=== PATIENT | male | born 1985 | race Caucasian/White ===

== ENCOUNTER 2017-01-24 18:08 | Emergency (ER) | payer MEDICAID, OTHER, SELFPAY ==
[2017-01-24] MEDS ORDERED: Ibuprofen 600 MG Tab PO ONE (18:40)
--- NOTE | 2017-01-24 18:48 | EDM.PDOC ---
ED HPI GENERAL MEDICAL PROBLEM - General Chief Complaint: Upper Extremity Injury/Pain Stated Complaint: INJ TO RT HAND Time Seen by Provider: 01/24/17 18:14 Source of Information: Reports: Patient, Family History Limitations: Reports: No Limitations - History of Present Illness INITIAL COMMENTS - FREE TEXT/NARRATIVE: 31 y.o.w.m came to the ed with his SO after he fell onto hi r hand today. Pt does not remember the mechanism of injury but noticed swelling of his r lat hand. He has full functions of his r hand. 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 Pt denied any other acute medical issues at this time. Onset: Today Onset Date: 01/24/17 Onset Time: 14:00 Duration: Hour(s):, Getting Worse Location: Reports: Upper Extremity, Right Quality: Reports: Dull, Pressure, Throbbing Severity: Moderate Improves with: Reports: Cold Therapy, Immobilization, Medication Worsens with: Reports: Movement Context: Reports: Trauma Associated Symptoms: Reports: No Other Symptoms Right Hand Pain Score (Numeric/FACES): 3 - Related Data Allergies Allergy/AdvReac Type Severity Reaction Status Date / Time No Known Allergies Allergy Verified 01/24/17 18:12 Home Meds: Home Meds Ranitidine [Zantac] 1 tab PO DAILY 01/24/17 [History] Social & Family History - Tobacco Use Smoking Status *Q: Current Every Day Smoker Years of Tobacco use: 14 Packs/Tins Daily: 1 - Caffeine Use Caffeine Use: Reports: Coffee - Alcohol Use Days Per Week of Alcohol Use: 7 Number of Drinks Per Day: 2 Total Drinks Per Week: 14 - Recreational Drug Use Recreational Drug Use: No Review of Systems - Review of Systems Review Of Systems: See Below Constitutional: Reports: No Symptoms Eyes: Reports: No Symptoms Ears: Reports: No Symptoms Nose: Reports: No Symptoms Mouth/Throat: Reports: No Symptoms Respiratory: Reports: No Symptoms Cardiovascular: Reports: No Symptoms GI/Abdominal: Reports: No Symptoms Genitourinary: Reports: No Symptoms Musculoskeletal: Reports: Hand Pain Skin: Reports: No Symptoms Neurological: Reports: No Symptoms Psychiatric: Reports: No Symptoms ED EXAM, GENERAL - Physical Exam Exam: See Below Exam Limited By: No Limitations General Appearance: Alert, WD/WN, Mild Distress, Thin Eye Exam: Bilateral Eye: Normal Inspection Ears: Normal External Exam Ear Exam: Bilateral Ear: Auricle Normal Nose: Normal Inspection, Normal Mucosa Throat/Mouth: Other (poor dentition) Head: Atraumatic, Normocephalic Neck: Normal Inspection, Supple, Non-Tender, Full Range of Motion Respiratory/Chest: No Respiratory Distress, Lungs Clear, Normal Breath Sounds Cardiovascular: Normal Peripheral Pulses, Regular Rate, Rhythm, No Edema, No Gallop Peripheral Pulses: 1+: Femoral (L), Femoral (R) GI/Abdominal: Normal Bowel Sounds, Soft, Non-Tender, No Organomegaly, No Distention, No Abnormal Bruit, No Mass, Pelvis Stable (Male) Exam: Deferred Rectal (Males) Exam: Deferred Back Exam: Normal Inspection, Full Range of Motion Extremities: Other (right lateral hand is swollen and tender, no open wound) Psychiatric: Normal Affect, Normal Mood Skin Exam: Warm, Dry, Intact, Normal Color, No Rash Lymphatic: No Adenopathy ED TRAUMA EXTREMITY PROCEDURES - Splinting Right Upper Extremity Splint Site: r laterla hand/forearm Pre-Procedure NV Status: Normal Post-Procedure NV Status: Normal Splint Material: Plaster Splint Design: Gutter Applied & Form Fitted By: Provider Provider Post-Splint Application NV Check: NV Status Normal Complications: No Course - Vital Signs Text/Narrative:: 31 y.o.w.m came to the ed with his SO after he fell onto hi r hand today. Pt does not remember the mechanism of injury but noticed swelling of his r lat hand. He has full functions of his r hand. 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 Pt denied any other acute medical issues at this time. PE: thin 31 y.o.w.m in NAD. swelling and tnderness r lat hand. Imaging: R hand: 30 degree angulated mid shaft/neck fx of r 5th metacarpal bone Impression: R hand: 30 degree angulated mid shaft/neck fx of r 5th metacarpal bone Tx: Ice, Motrin, splint applied Reexam: Improved, < 2sec Cap refill Consultation: Dr. Pitt. Will see pt in his clinic. Plan: D/C with instruction Last Recorded V/S: Last Vital Signs Temp 36.8 C 01/24/17 18:14 Pulse 70 01/24/17 19:25 Resp 18 01/24/17 19:25 BP 135/86 07/26/17 19:25 Pulse Ox 98 01/24/17 19:25 - Orders/Labs/Meds Meds: Medications Discontinued Medications Generic Name Dose Route Start Last Admin Trade Name Bia PRN Reason Stop Dose Admin Ibuprofen 600 mg 01/24/17 18:40 01/24/17 18:44 Motrin PO 01/24/17 18:41 600 mg ONETIME ONE Administration Ibuprofen 6,400 mg 01/24/17 19:25 Motrin PO 01/24/17 19:26 .STK-MED ONE Departure - Departure Time of Disposition: 19:20 Disposition: Home, Self-Care 01 Condition: Good Clinical Impression: Closed fracture of 5th metacarpal Qualifiers: Encounter type: initial encounter Metacarpal location: neck Fracture alignment : displaced Laterality: right Qualified Code(s): S62.336A - Displaced fracture of neck of fifth metacarpal bone, right hand, initial encounter for closed fracture - Discharge Information Referrals: PCP,None [Primary Care Provider] - Koko Pitt MD [Physician] - Forms: ED Department Discharge Additional Instructions: Please take motrin for pain, please apply ice to the affected area, please elevate r hand, f/u with Dr. Pitt at 2.30 pm tomorrow 01/25/2017, please come back to the ed immediately if the symptoms get worse acutely.
[2017-01-24] MEDS ORDERED: Ibuprofen 800 MG Tab PO ONE (19:25)
[2017-01-24 19:41] VITALS: BP 135/86
--- NOTE | 2017-01-30 09:36 | CR ---
INDICATION: Fell. RIGHT HAND: Three views of the right hand revealed a healing fracture of the distal shaft of the 5th metacarpal with periosteal new bone formation and dorsal angulation at the fracture site. There is also medial angulation of the fracture site with a significant degree of healing. No old study was available. A definite acute fracture or dislocation was not identified. Either an ununited accessory ossification center or ununited chip fracture fragment is noted at the ulnar styloid. This does not appear to be acute. IMPRESSION: 1. Healing fracture of the 5th metacarpal. Cannot exclude refracture at that site - correlate clinically. 2. Ulnar styloid probable ununited accessory ossification center or more likely ununited chip fracture fragment from previous injury. If old films are available for comparison, they may be helpful. [facility]
== END 2017-01-24 19:28 | disposition home or self-care (01) ==
LOC: FB.ED 18:08
DX: S62.336A Displaced fracture of neck of fifth metacarpal bone, right hand, initial encounter for closed fracture (principal); F17.210 Nicotine dependence, cigarettes, uncomplicated; W19.XXXA Unspecified fall, initial encounter
CPT/HCPCS: 29125; 73130; 99283; A9270; 99282